=== PATIENT | male | born 1980 | race Caucasian/White ===

== ENCOUNTER 2018-02-23 21:30 | Emergency (ER) | payer OTHER ==
[2018-02-23 21:49] VITALS: PULSE 71; RESP 17
--- NOTE | 2018-02-23 22:40 | ED PDOC ---
Upper Extremity Pain/Injury Time Seen by Provider: 02/23/18 21:55 Chief Complaint (Nursing): Finger,Hand,&Wrist Chief Complaint (Provider): Left Wrist Injury History Per: Patient History/Exam Limitations: no limitations Onset/Duration Of Symptoms: Hrs (x2 hr representative) Current Symptoms Are (Timing): Still Present Pain Scale Rating Of: 8 (localized) Additional Complaint(s): 38 year old male presents to the ED for evaluation of left wrist pain onset two hours prior to arrival. Patient states that he works for the [employer], and while walking along the tracks earlier, tripped and fell on his left wrist. At this time he reports 8/10 localized pain to the wrist, but denies taking any medications prior to arrival. Otherwise, (-) head injury, (-) loss of consciousness, (-) prior wrist injury, (-) other complaints at present. Right hand dominant. PMD: none provided Past Medical History Reviewed: Historical Data, Nursing Documentation, Vital Signs Vital Signs: Last Vital Signs Temp 97.9 F 02/23/18 21:45 Pulse 71 02/23/18 21:45 Resp 17 02/23/18 21:45 BP 123/82 02/23/18 21:45 Pulse Ox 97 02/23/18 21:45 - Medical History PMH: Back Problems - Surgical History Surgical History: No Surg Hx - Family History Family History: States: Unknown Family Hx - Social History Current smoker - smoking cessation education provided: No Alcohol: None Drugs: Denies - Home Medications Home Medications: Ambulatory Orders Medication Instructions Recorded Cyclobenzaprine [Cyclobenzaprine 10 mg PO TID #15 tab 01/21/17 HCl] Naproxen [Naprosyn] 1 tab PO BID PRN #20 tab 01/21/17 Ibuprofen [Motrin Tab] 800 mg PO Q8 PRN #21 tab 02/23/18 - Allergies Allergies/Adverse Reactions: Allergies Allergy/AdvReac Type Severity Reaction Status Date / Time No Known Allergies Allergy Verified 01/21/17 05:56 Review of Systems ROS Statement: Except As Marked, All Systems Reviewed And Found Negative Constitutional: Negative for: Other (head injury) Musculoskeletal: Positive for: Hand Pain (left wrist) Neurological: Negative for: Other (loss of consciousness) Physical Exam - Reviewed Nursing Documentation Reviewed: Yes Vital Signs Reviewed: Yes - Physical Exam Comments: GENERAL APPEARANCE: Patient is awake, alert, oriented x 3, in no acute distress. Resting comfortably. SKIN: Warm, dry; (-) cyanosis. NECK: Supple, FROM LEFT UPPER EXTREMITY: (+) tenderness to distal ulnar aspect of forearm/wrist, (+ ) full ROM of wrist with pain on flexion, (-) ecchymosis, (-) effusion, (-) edema, (-) erythema (-) skin break (-) scaphoid tenderness. Capillary refill and sensation intact. Remainder of upper left extremity: (-) tenderness, (+) full ROM. HEART AND CARDIOVASCULAR: (-) irregularity; (-) murmur, (-) gallop. CHEST AND RESPIRATORY: (-) rales, (-) rhonchi, (-) wheezes; breath sounds equal. Respirations even and nonlabored. NEURO AND PSYCH: Mental status as above. Gait steady, speech clear. (-) facial asymmetry (-) focal deficit. - ECG O2 Sat by Pulse Oximetry: 97 (RA) Pulse Ox Interpretation: Normal Medical Decision Making Medical Decision Making: Time: 21:57 Initial Impression: acute wrist pain s/p fall, r/o fracture Initial Plan: --Left wrist XR --Patient declined pain medication at this time. 2225 Wrist XR: (-) fracture (-) dislocation as read by Saúl ANTHONY Patient notified a Radiologist will review the ED reading if any change in treatment is needed we will contact him. 2235 Volar splint placed by termite control technician. Placement and application verified by Saúl Alicea. NV intact after placement. Educated on splint care. Patient provided with CD of XR images for follow up. On re-evaluation, patient reports improvement of symptoms. On exam, patient remains AAOx3, in no acute distress. Lungs clear to auscultation, cardiac RRR, repeat neuro exam shows no focal findings. Vitals stable. Lab/Diagnostic results d/w the patient in great detail. Diagnosis of acute wrist pain/sprain s/p fall d/w the patient. Based on history, exam and diagnostic results, plan will be for outpatient follow up with ortho. Patient instructed to follow-up with pmd / referral provided / the clinic in 1- 2 days without fail. Advised to take medication as prescribed. Return to the emergency room at any time for any new or worsening symptoms. Patient states he fully agrees with and understands discharge instructions. States that he agrees with the plan and disposition. Verbalized and repeated discharge instructions and plan. I have given the patient opportunity to ask any additional questions. Scribe Attestation: Documented by Sue Zarate, acting as a scribe for Claribel Hays PA-C. Provider Scribe Attestation: All medical record entries made by the Scribe were at my direction and personally dictated by me. I have reviewed the chart and agree that the record accurately reflects my personal performance of the history, physical exam, medical decision making, and the department course for this patient. I have also personally directed, reviewed, and agree with the discharge instructions and disposition. Disposition - Clinical Impression Clinical Impression: Wrist pain, acute, Wrist sprain, Fall - Patient ED Disposition Is Patient to be Admitted: No Counseled Patient/Family Regarding: Studies Performed, Diagnosis, Need For Followup, Rx Given - Disposition Referrals: Saman Posey MD [Staff Provider] - Disposition: Routine/Home Disposition Time: 22:40 Condition: STABLE Additional Instructions: FOLLOW UP WITH PMD/ORTHO IN 1-2 DAYS FOR FURTHER EVALUATION. RETURN TO ED WITH ANY NEW OR WORSENING SYMPTOMS. TAKE MEDICATION PRESCRIBED. KEEP SPLINT CLEAN AND DRY. IF ED STAFF DOES NOT CALL YOU REGARDING ADDITIONAL XRAY FINDINGS, REMOVE SPLINT IN 2 DAYS. The emergency medical care you received today was directed at your acute symptoms. If you were prescribed any medication, please fill it and take as directed. It may take several days for your symptoms to resolve. Return to the Emergency Department if your symptoms worsen, do not improve, or if you have any other problems. Please contact your doctor in 2 days for re-evaluation and follow up / or call one of the physicians/clinics you have been referred to that are listed on the Patient Visit Information form that is included in your discharge packet. Bring any paperwork you were given at discharge with you along with any medications you are taking to your follow up visit. Our treatment cannot replace ongoing medical care by a primary care provider (PCP) outside of the emergency department. Prescriptions: Ibuprofen [Motrin Tab] 800 mg PO Q8 PRN #21 tab PRN Reason: Pain, Moderate (4-7) Instructions: Wrist Sprain (DC), Common Wrist Injuries Forms: [facility] (Greenlandic), [facility] ED School/Work Excuse Print Language: BELARUSIAN - POA Present On Arrival: Falls Or Trauma
[2018-02-23 23:10] VITALS: BP 156/89; TEMP 98
[2018-02-23 23:20] VITALS: O2SAT 97
--- NOTE | 2018-02-24 08:56 | RAD ---
Date of service: 02/23/2018 PROCEDURE: Left Wrist Radiographs. HISTORY: joint pain s/p fall COMPARISON: None. FINDINGS: BONES: Bone alignment and mineralization are normal. There is no acute displaced fracture or bone destruction. JOINTS: Normal. No dislocation. SOFT TISSUES: Normal. OTHER FINDINGS: None. IMPRESSION: No acute fracture or dislocation.
== END 2018-02-23 23:15 | disposition home or self-care (01) ==
LOC: H.ER 21:30
DX: S63.92XA Sprain of unspecified part of left wrist and hand, initial encounter (principal); W19.XXXA Unspecified fall, initial encounter; Y99.0 Civilian activity done for income or pay